=== PATIENT | female | born 1950 | race Hispanic/Latino ===

== ENCOUNTER → 2018-02-11 | Outpatient (CLI) | payer MEDICARE | END | disposition home or self-care (01) | LOC: RAH 10:32 | PROVIDERS: ATTEND Family Medicine | DX: Z12.31 Encounter for screening mammogram for malignant neoplasm of breast (principal); I10 Essential (primary) hypertension; E03.9 Hypothyroidism, unspecified | CPT/HCPCS: 77067 ==

== ENCOUNTER → 2018-07-15 | Outpatient (CLI) | payer MEDICARE ==
[~2018-07-15] MED LIST: ALEN70TA10 PO; AMLO10TA7 PO; IOHEXOL-350 75 ML VIAL IV ONE; LEVO50 PO; LEVO500T2 PO; LOSA25TA41 PO; METO-409 PO; METR500T PO
== END | disposition home or self-care (01) ==
LOC: DAH 08:18
PROVIDERS: ATTEND Internal Medicine
DX: K57.32 Diverticulitis of large intestine without perforation or abscess without bleeding (principal); E27.9 Disorder of adrenal gland, unspecified; N32.89 Other specified disorders of bladder; M85.88 Other specified disorders of bone density and structure, other site; M47.815 Spondylosis without myelopathy or radiculopathy, thoracolumbar region
CPT/HCPCS: 74178; Q9967

== ENCOUNTER → 2018-08-20 | Outpatient (CLI) | payer MEDICARE ==
[~2018-08-20] MED LIST changes: -IOHEXOL-350 75 ML VIAL IV ONE
== END | disposition home or self-care (01) ==
LOC: RAH 12:48
PROVIDERS: ATTEND Family Medicine
DX: E04.2 Nontoxic multinodular goiter (principal); E03.9 Hypothyroidism, unspecified
CPT/HCPCS: 76536

== ENCOUNTER → 2019-03-04 | Outpatient (CLI) | payer MEDICARE | END | disposition home or self-care (01) | LOC: RAH 11:11 | PROVIDERS: ATTEND Family Medicine | DX: E04.2 Nontoxic multinodular goiter (principal) | CPT/HCPCS: 76536 ==

== ENCOUNTER → 2020-03-17 | Outpatient (CLI) | payer MEDICARE ==
[~2020-03-17] MED LIST changes: -ALEN70TA10 PO; +ALEN70TA69 PO; +AMLO-258 PO; -AMLO10TA7 PO
== END | disposition home or self-care (01) ==
LOC: RAH 10:43
PROVIDERS: ATTEND Family Medicine
DX: E04.2 Nontoxic multinodular goiter (principal)
CPT/HCPCS: 76536

== ENCOUNTER 2021-11-26 12:07 | Emergency (ER) | payer MEDICARE ==
[~2021-11-26] VITALS: Ht 154.9 cm; Wt 73.9 kg
[~2021-11-26 12:07] MED LIST changes: -ALEN70TA69 PO; +ALEN70TA80 PO
[2021-11-26 12:14] VITALS: BP 132/57
[2021-11-26] MEDS ORDERED: DICL20GE TP (15:39)
[2021-11-26] MEDS ORDERED: TRAM50TA2 PO (15:39)
[2021-11-26] MEDS ORDERED: KETOROLAC 30MG VIAL (30MG/ML) IM ONE (16:00)
== END 2021-11-26 16:19 | disposition home or self-care (01) ==
LOC: EDH 12:07
DX: R07.89 Other chest pain (principal); I10 Essential (primary) hypertension; Z79.899 Other long term (current) drug therapy
CPT/HCPCS: 71101; 93005; J1885

== ENCOUNTER 2022-09-08 20:14 | Observation (INO) | payer MEDICARE ==
[~2022-09-08] VITALS: Ht 154.9 cm; Wt 74.4 kg
[~2022-09-08 20:14] MED LIST changes: +DICL20GE TP; +TRAM50TA2 PO
[2022-09-08 20:33] LABS: APPEARANCE,URINE CLOUDY (CLEAR); BILIRUBIN,URINE NEGATIVE (NEGATIVE); COLOR,URINE YELLOW (YELLOW); GLUCOSE, URINE (UA) NEGATIVE (NEGATIVE); KETONES,URINE NEGATIVE (NEGATIVE); LEUKOCYTE ESTERASE ,URINE 500 Leu/uL (NEGATIVE); NITRATE,URINE NEGATIVE (NEGATIVE); OCCULT BLOOD,URINE NEGATIVE (NEGATIVE); PH,URINE 5.5 (5.0-8.0); PROTEIN,URINE 20 mg/dL (NEGATIVE)
[2022-09-08 20:38] LABS: BACTERIA,URINE FEW /HPF (None Seen); MUCUS,URINE RARE LPF (None Seen); SQUAMOUS EPITHELIAL CELL,UR RARE /HPF (0-2); WBC,URINE 51-100 /HPF (0-1); YEAST,URINE BUDDING RARE /HPF (None Seen)
[2022-09-08] MEDS ORDERED: DOXYCYCLINE HYCLATE 100 MG TABLET PO ONE ×2 (20:38→20:57)
[2022-09-08] MEDS ORDERED: HYDROCODONE/ACETAMINOPHEN 5/325 MG TAB ONE (20:39)
[2022-09-08] MEDS ORDERED: HYDROCODONE/ACETAMINOPHEN 10/325 MG TAB ONE (20:57)
[2022-09-08] MEDS ORDERED: CEFTRIAXONE 1G VIAL IVP ONE (21:00)
[2022-09-08 21:18] LABS: BASOPHILS % (AUTO) 0.3 % (0.0-5.0); EOSINOPHILS % (AUTO) 0.3 % (0.0-8.0); HEMATOCRIT 34.5 % (36-48); MEAN CORPUSCULAR HEMOGLOBIN 27.3 pg (27.0-33.0); MEAN CORPUSCULAR HGB CONC 32.2 g/dL (32.0-36.0); MONOCYTES % (AUTO) 6.1 % (3.0-13.0); NEUTROPHILS % (AUTO) 91.7 % (40.0-77.0); PLATELET COUNT (AUTO) 429 K/uL (130-400); RED BLOOD CELL COUNT(AUTO) 4.06 MIL/uL (4.00-5.50); RED CELL DISTRIBUTION WIDTH 13.4 % (11.0-15.5); WHITE BLOOD COUNT (AUTO) 22.6 K/uL (4.8-10.8)
[2022-09-08 21:34] LABS: CREATININE 0.9 mg/dL (0.5-1.5); POTASSIUM 3.9 mmol/L (3.5-5.1)
[2022-09-08 21:38] LABS: TOTAL PROTEIN, SERUM 6.7 g/dL (6.0-8.3)
[2022-09-09] VITALS (15 sets, daily range): BP systolic 119–142; BP diastolic 28–85
[2022-09-09] MEDS ORDERED: ONDANSETRON 4MG INJ IVP PRN (01:30)
[2022-09-09] MEDS ORDERED: MAGNESIUM 2GM PREMIX 50ML 50 ML IV PRN (01:30)
[2022-09-09] MEDS ORDERED: GLUCAGON 1MG KIT 1 MG ML IM PRN (01:30)
[2022-09-09] MEDS ORDERED: HYDRALAZINE 20MG/ML VIAL IV PRN (01:30)
[2022-09-09] MEDS ORDERED: 0.9%NACL 50ML IV SCH (01:30)
[2022-09-09] MEDS ORDERED: LACTULOSE 20 GM/30 ML UDCUP PO PRN (01:30)
[2022-09-09] MEDS ORDERED: DEXTROSE 50%-WATER 50 ML DISP.SYRIN IV PRN (01:30)
[2022-09-09] MEDS ORDERED: LIDOCAINE HCL-MPF 1% 2ML VIAL IV PRN (01:30)
[2022-09-09] MEDS ORDERED: ZOSYN 3.375GM +NS 50ML IVPB SCH (01:30)
[2022-09-09] MEDS ORDERED: IPRATROPIUM 0.5 MG/2.5 ML INH IH PRN (01:30)
[2022-09-09] MEDS ORDERED: POTASSIUM CHLORIDE 10MEQ/100ML 100 ML IV PRN (01:30)
[2022-09-09] MEDS ORDERED: ALBUTEROL 0.083% 2.5 MG/3 ML INH IH PRN (01:30)
[2022-09-09] MEDS ORDERED: CLONIDINE HCL 0.1 MG TABLET PO PRN (01:30)
[2022-09-09] MEDS ORDERED: MEROPENEM 1 GM VIAL IVP SCH (02:00)
[2022-09-09 05:54] LABS: BASOPHILS % (AUTO) 0.5 % (0.0-5.0); EOSINOPHILS % (AUTO) 0.5 % (0.0-8.0); HEMATOCRIT 36.5 % (36-48); LYMPHOCYTES % (AUTO) 5.2 % (21.0-51.0); MEAN CORPUSCULAR HEMOGLOBIN 27.5 pg (27.0-33.0); MEAN CORPUSCULAR HGB CONC 32.1 g/dL (32.0-36.0); MEAN CORPUSCULAR VOLUME 85.9 fL (79-99); MONOCYTES % (AUTO) 6.1 % (3.0-13.0); NEUTROPHILS % (AUTO) 87.1 % (40.0-77.0); PLATELET COUNT (AUTO) 422 K/uL (130-400); RED BLOOD CELL COUNT(AUTO) 4.25 MIL/uL (4.00-5.50); RED CELL DISTRIBUTION WIDTH 13.5 % (11.0-15.5); WHITE BLOOD COUNT (AUTO) 11.6 K/uL (4.8-10.8)
[2022-09-09 05:59] LABS: HEMOGLOBIN A1C 6.7 % (4.0-6.0)
[2022-09-09] MEDS: INSULIN HUMULIN R 100 UNIT/ML 3ML SQ SCH ×3 (06:00→17:32)
[2022-09-09 06:03] LABS: INR 0.96 (0.85-1.15); PROTHROMBIN TIME 10.5 SEC (9.6-11.6)
[2022-09-09 06:04] LABS: PARTIAL THROMBOPLASTIN TIME 21.4 SEC (26.3-35.5)
[2022-09-09 06:22] LABS: CREATININE 0.8 mg/dL (0.5-1.5); MAGNESIUM 2.1 mg/dL (1.80-2.40); PHOSPHORUS 2.8 mg/dL (2.5-4.9); POTASSIUM 3.8 mmol/L (3.5-5.1); THYROID STIMULATING HORMONE 2.18 uIU/mL (0.36-3.74)
[2022-09-09] MEDS: FAMOTIDINE 20MG TAB PO SCH ×2 (09:11→21:35)
[2022-09-09] MEDS: DOCUSATE SODIUM 100 MG CAP PO SCH ×2 (09:11→21:35)
[2022-09-09] MEDS: CEFAZOLIN SODIUM 2 GM VIAL IVP SCH ×2 (10:11→16:51)
[2022-09-09] MEDS: ACETAMINOPHEN 325 MG TAB PO PRN (12:11)
[2022-09-09] MEDS: HYDROCODONE/ACETAMINOPHEN 5/325 MG TAB PO PRN (16:52)
[2022-09-09] MEDS ORDERED: HYDROCODONE/ACETAMINOPHEN 5/325 MG TAB PO PRN (17:00)
[2022-09-10] VITALS (27 sets, daily range): BP systolic 103–135; BP diastolic 40–81
[2022-09-10] MEDS: CEFAZOLIN SODIUM 2 GM VIAL IVP SCH ×2 (01:09→08:12)
[2022-09-10 04:01] LABS: BASOPHILS % (AUTO) 0.7 % (0.0-5.0); EOSINOPHILS % (AUTO) 3.7 % (0.0-8.0); LYMPHOCYTES % (AUTO) 13.6 % (21.0-51.0); MEAN CORPUSCULAR HEMOGLOBIN 27.2 pg (27.0-33.0); MEAN CORPUSCULAR HGB CONC 31.4 g/dL (32.0-36.0); MEAN CORPUSCULAR VOLUME 86.9 fL (79-99); MONOCYTES % (AUTO) 13.6 % (3.0-13.0); NEUTROPHILS % (AUTO) 67.9 % (40.0-77.0); PLATELET COUNT (AUTO) 441 K/uL (130-400); RED BLOOD CELL COUNT(AUTO) 4.26 MIL/uL (4.00-5.50); RED CELL DISTRIBUTION WIDTH 13.5 % (11.0-15.5); WHITE BLOOD COUNT (AUTO) 9.2 K/uL (4.8-10.8)
[2022-09-10 04:09] LABS: CREATININE 0.7 mg/dL (0.5-1.5); MAGNESIUM 2.1 mg/dL (1.80-2.40); PHOSPHORUS 3.2 mg/dL (2.5-4.9); POTASSIUM 3.5 mmol/L (3.5-5.1)
[2022-09-10] MEDS: INSULIN HUMULIN R 100 UNIT/ML 3ML SQ SCH ×4 (06:00→11:47)
[2022-09-10] MEDS ORDERED: LEVOTHYROXINE 50 MCG TABLET PO SCH (06:30)
[2022-09-10] MEDS: DOCUSATE SODIUM 100 MG CAP PO SCH (08:02)
[2022-09-10] MEDS: HYDROCODONE/ACETAMINOPHEN 5/325 MG TAB PO PRN (08:03)
[2022-09-10] MEDS: FAMOTIDINE 20MG TAB PO SCH (08:04)
[2022-09-10] MEDS ORDERED: NON-FORMULARY MEDICATION 1 EACH (Metoprolol Succinate 100 MG) PO SCH (09:00)
[2022-09-10] MEDS ORDERED: METOPROLOL SUCCINATE 50 MG TAB.SR.24H PO SCH (09:00)
[2022-09-10] MEDS ORDERED: NON-FORMULARY MEDICATION 1 EACH (Amlodipine Besylate 10 MG) PO SCH (09:00)
[2022-09-10] MEDS ORDERED: LOSARTAN 25 MG TABLET PO SCH ×2 (09:00→12:00)
[2022-09-10] MEDS ORDERED: AMLODIPINE 5 MG TAB PO SCH ×2 (09:00→21:00)
[2022-09-10] MEDS: ACETAMINOPHEN 325 MG TAB PO PRN (16:01)
== END 2022-09-10 16:45 | disposition home or self-care (01) ==
LOC: EDH 20:14 → EDHIP 09-09 01:14 → INTOOBSV 09-09 01:14 → 2CH 09-09 12:00
PROVIDERS: ADMIT Internal Medicine; ATTEND Internal Medicine
DX: A41.9 Sepsis, unspecified organism (principal); Z20.822 Contact with and (suspected) exposure to COVID-19; N30.00 Acute cystitis without hematuria; S00.531A Contusion of lip, initial encounter; S20.211A Contusion of right front wall of thorax, initial encounter; S70.01XA Contusion of right hip, initial encounter; I10 Essential (primary) hypertension; E03.9 Hypothyroidism, unspecified; M81.0 Age-related osteoporosis without current pathological fracture; W01.10XA Fall on same level from slipping, tripping and stumbling with subsequent striking against unspecified object, initial encounter; Y93.89 Activity, other specified; Y92.89 Other specified places as the place of occurrence of the external cause; F41.9 Anxiety disorder, unspecified
CPT/HCPCS: 83735 ×3; 80053; 85025 ×3; 87040 ×2; 87088; 87804 ×2; 83605 ×2; 81001; 36415 ×3; 87635; 71045; 73502; 70450 ×3; 97039 ×3; 96374; 96376 ×2; 96375; 99285; 83036; 84443; 84100 ×2; 80048 ×2; 85610; 85730; 86850; 86900; 86901; 82948 ×7; 97161; 94664; 84145; 97116; C9803; J0696; G0378 ×39; J2185; J0690 ×4; J1815

== ENCOUNTER → 2023-05-19 | Outpatient (CLI) | payer MEDICARE ==
[~2023-05-19] MED LIST changes: -ALEN70TA80 PO; -DICL20GE TP; -LEVO500T2 PO; -METR500T PO; +ONDA-104 PO; +PHEN-948 PO; -TRAM50TA2 PO
[2023-05-19 12:17] LABS: BASOPHILS # (AUTO) 0.08 K/uL (0.00-0.20); BASOPHILS % (AUTO) 0.6 % (0.0-5.0); EOSINOPHILS # (AUTO) 0.15 K/uL (0.00-0.70); EOSINOPHILS % (AUTO) 1.1 % (0.0-8.0); HEMATOCRIT 42.3 % (36-48); IMMATURE GRANULOCYTE ABSOLUTE 0.05 K/uL (0-1); LYMPHOCYTES # (AUTO) 1.2 K/uL (1.0-4.8); LYMPHOCYTES % (AUTO) 8.9 % (21.0-51.0); MEAN CORPUSCULAR HGB CONC 31.4 g/dL (32.0-36.0); MEAN CORPUSCULAR VOLUME 92.4 fL (79-99); MONOCYTES # (AUTO) 1.1 K/uL (0.1-1.0); MONOCYTES % (AUTO) 7.9 % (3.0-13.0); NEUTROPHILS # (AUTO) 11.2 K/uL (1.8-7.7); NEUTROPHILS % (AUTO) 81.1 % (40.0-77.0); PLATELET COUNT (AUTO) 413 K/uL (130-400); RED BLOOD CELL COUNT(AUTO) 4.58 MIL/uL (4.00-5.50); RED CELL DISTRIBUTION WIDTH 13.6 % (11.0-15.5); WHITE BLOOD COUNT (AUTO) 13.7 K/uL (4.8-10.8)
[2023-05-19 12:28] LABS: ALBUMIN 3.7 g/dL (3.5-5.0); BILIRUBIN,TOTAL 0.3 mg/dL (0.2-1.0); CREATININE 0.7 mg/dL (0.5-1.5); POTASSIUM 4.1 mmol/L (3.5-5.1); TOTAL PROTEIN, SERUM 8.3 g/dL (6.0-8.3)
[2023-05-19 12:40] LABS: INR < 0.93 (0.85-1.15); PROTHROMBIN TIME 10.3 SEC (9.6-11.6)
[2023-05-19 12:42] LABS: PARTIAL THROMBOPLASTIN TIME 20.8 SEC (26.3-35.5)
== END | disposition home or self-care (01) ==
LOC: LAB 11:14
PROVIDERS: ATTEND Surgery
DX: Z93.3 Colostomy status (principal); Z79.899 Other long term (current) drug therapy; Z79.01 Long term (current) use of anticoagulants
CPT/HCPCS: 36415; 80053; 85025; 85610; 85730

== ENCOUNTER 2023-05-21 08:37 | Day surgery (SDC) | payer MEDICARE ==
[~2023-05-21] VITALS: Ht 157.5 cm; Wt 62.4 kg
[2023-05-21] VITALS (11 sets, daily range): BP systolic 100–114; BP diastolic 45–54; PULSE 60–77; RESP 10–18
[~2023-05-21 08:37] MED LIST changes: -ONDA-104 PO; -PHEN-948 PO
[2023-05-21] MEDS ORDERED: 0.9%NACL 1000ML 1,000 ML IV ONE (09:01)
[2023-05-21] MEDS ORDERED: LIDOCAINE PF 100MG/5ML (2%) SYRINGE 5ML ONE (11:15)
[2023-05-21] MEDS ORDERED: PROPOFOL 10 MG/ML 20ML VIAL IV ONE (11:15)
== END 2023-05-21 12:55 | disposition home or self-care (01) ==
LOC: DAH 08:37 → ENDO 08:37
PROVIDERS: ATTEND Surgery
DX: K57.21 Diverticulitis of large intestine with perforation and abscess with bleeding (principal); K62.89 Other specified diseases of anus and rectum; I10 Essential (primary) hypertension; Z79.899 Other long term (current) drug therapy; M81.0 Age-related osteoporosis without current pathological fracture; M19.90 Unspecified osteoarthritis, unspecified site; Z79.01 Long term (current) use of anticoagulants; Z98.890 Other specified postprocedural states; Z90.49 Acquired absence of other specified parts of digestive tract; Z86.010 Personal history of colon polyps; Z93.3 Colostomy status
CPT/HCPCS: 45335; 45331; J7030 ×2; J2001; J2704; A4620; A4215 ×2; A4223; A7002; A4222; A4221; A4663; A4216; A4606; J3490

== ENCOUNTER → 2023-09-18 | Outpatient (CLI) | payer MEDICARE ==
[~2023-09-18] MED LIST changes: +ALEN70TA80 PO; +CHOL100046 PO
== END | disposition home or self-care (01) ==
LOC: RAH 09:13
PROVIDERS: ATTEND Family Medicine
DX: Z12.31 Encounter for screening mammogram for malignant neoplasm of breast (principal)
CPT/HCPCS: 77067

== ENCOUNTER 2023-10-10 11:00 | Inpatient (IN) | payer MEDICARE ==
[~2023-10-10] VITALS: Ht 157.5 cm; Wt 68.1 kg
[2023-10-10 10:31] LABS: BASOPHILS # (AUTO) 0.11 K/uL (0.00-0.20); BASOPHILS % (AUTO) 1.1 % (0.0-5.0); EOSINOPHILS # (AUTO) 0.51 K/uL (0.00-0.70); EOSINOPHILS % (AUTO) 5.2 % (0.0-8.0); HEMATOCRIT 42.4 % (36-48); IMMATURE GRANULOCYTE ABSOLUTE 0.03 K/uL (0-1); LYMPHOCYTES # (AUTO) 1.3 K/uL (1.0-4.8); LYMPHOCYTES % (AUTO) 12.6 % (21.0-51.0); MEAN CORPUSCULAR HEMOGLOBIN 26.2 pg (27.0-33.0); MEAN CORPUSCULAR HGB CONC 30.7 g/dL (32.0-36.0); MEAN CORPUSCULAR VOLUME 85.5 fL (79-99); MONOCYTES # (AUTO) 0.9 K/uL (0.1-1.0); MONOCYTES % (AUTO) 8.6 % (3.0-13.0); NEUTROPHILS # (AUTO) 7.1 K/uL (1.8-7.7); NEUTROPHILS % (AUTO) 72.2 % (40.0-77.0); PLATELET COUNT (AUTO) 463 K/uL (130-400); RED BLOOD CELL COUNT(AUTO) 4.96 MIL/uL (4.00-5.50); RED CELL DISTRIBUTION WIDTH 14.5 % (11.0-15.5); WHITE BLOOD COUNT (AUTO) 9.9 K/uL (4.8-10.8)
[2023-10-10 10:44] LABS: INR <= 0.93 (0.85-1.15); PROTHROMBIN TIME 10.4 SEC (9.6-11.6)
[2023-10-10 10:45] LABS: PARTIAL THROMBOPLASTIN TIME 25.6 SEC (26.3-35.5)
[2023-10-10 10:55] LABS: ALBUMIN 3.6 g/dL (3.5-5.0); BILIRUBIN,TOTAL 0.3 mg/dL (0.2-1.0); CREATININE 0.7 mg/dL (0.5-1.0); POTASSIUM 4.2 mmol/L (3.5-5.1); TOTAL PROTEIN, SERUM 7.8 g/dL (6.0-8.3)
[2023-10-10 11:02] VITALS: BP 129/58; PULSE 81; RESP 18
[2023-10-10] MEDS ORDERED: CELE200 PO (11:13)
[2023-10-10] MEDS ORDERED: calcium PO (11:13)
[2023-10-10] MEDS ORDERED: mvi PO (11:13)
[2023-10-15] VITALS (27 sets, daily range): BP systolic 90–129; BP diastolic 44–83; PULSE 8–95; RESP 12–20; O2SAT 99
[2023-10-15] MEDS: INDOCYANINE GREEN 25 MG VIAL IJ ONE (06:54)
[2023-10-15] MEDS: FAMOTIDINE 20MG VIAL IV ONE (07:02)
[2023-10-15] MEDS: ACETAMINOPHEN 1,000 MG/100 ML VIAL IV ONE (07:02)
[2023-10-15] MEDS ORDERED: KETAMINE 50MG/ML SYRINGE 50 MG/ML DISP.SYRIN ONE (07:04)
[2023-10-15] MEDS: LACTATED RINGERS 1000ML 1,000 ML IV ONE (07:11)
[2023-10-15] MEDS: SCOPOLAMINE HYDROBROMIDE 1 EACH ADH..PATCH TD ONE (07:11)
[2023-10-15] MEDS ORDERED: LIDOCAINE PF 100MG/5ML (2%) SYRINGE 5ML ONE (07:13)
[2023-10-15] MEDS ORDERED: FENTANYL CITRATE PF 50 MCG/1 ML 2ML VIAL ONE (07:13)
[2023-10-15] MEDS ORDERED: PROPOFOL 10 MG/ML 20ML VIAL IV ONE (07:13)
[2023-10-15] MEDS ORDERED: ROCURONIUM BROMIDE 10MG/1ML 5ML VL ONE ×2 (07:13→10:19)
[2023-10-15] MEDS ORDERED: DEXAMETHASONE SOD PHOSPHATE 10MG/ML 1ML VIAL ONE (08:24)
[2023-10-15] MEDS ORDERED: ONDANSETRON 4MG INJ ONE (08:24)
[2023-10-15] MEDS: INVANZ 1GM+NS 50ML IVPB 50 ML IV ONE (08:55)
[2023-10-15] MEDS: BUPIVACAINE/PF 0.5% 30ML VIAL ONE (09:13)
[2023-10-15] MEDS: LIDOCAINE 1%-EPI 1:100,000 20 ML VIAL ONE (09:13)
[2023-10-15] MEDS ORDERED: GLYCOPYRROLATE 0.2 MG/ML 5 ML VIAL ONE (11:46)
[2023-10-15] MEDS ORDERED: NEOSTIGMINE METHYLSULFATE 1MG/ML IV ONE (11:46)
[2023-10-15] MEDS: MORPHINE 4 MG SYG IV PRN (13:37)
[2023-10-15] MEDS ORDERED: HYDRALAZINE 20MG/ML VIAL IV PRN (18:00)
[2023-10-15] MEDS: D5W-1/2 NS/20MEQ KCL 1,000 ML IV SCH (18:35)
[2023-10-15] MEDS: LOSARTAN 25 MG TABLET PO SCH (20:43)
[2023-10-15] MEDS ORDERED: AMLODIPINE 5 MG TAB PO SCH (21:00)
[2023-10-15] MEDS: ONDANSETRON 4MG INJ IVP PRN (21:13)
[2023-10-15] MEDS: FAMOTIDINE 20MG VIAL IV SCH (21:14)
[2023-10-15] MEDS: ACETAMINOPHEN 325 MG TAB PO PRN (21:52)
[2023-10-16] VITALS (8 sets, daily range): BP systolic 102–131; BP diastolic 53–70; PULSE 72–84; RESP 17–18; O2SAT 93
[2023-10-16 04:03] LABS: CREATININE 0.7 mg/dL (0.5-1.0); POTASSIUM 3.9 mmol/L (3.5-5.1)
[2023-10-16 04:05] LABS: BASOPHILS # (AUTO) 0.04 K/uL (0.00-0.20); BASOPHILS % (AUTO) 0.2 % (0.0-5.0); HEMATOCRIT 36.9 % (36-48); IMMATURE GRANULOCYTE ABSOLUTE 0.11 K/uL (0-1); LYMPHOCYTES % (AUTO) 4.8 % (21.0-51.0); MEAN CORPUSCULAR HEMOGLOBIN 25.9 pg (27.0-33.0); MEAN CORPUSCULAR HGB CONC 32.2 g/dL (32.0-36.0); MEAN CORPUSCULAR VOLUME 80.2 fL (79-99); MONOCYTES # (AUTO) 1.2 K/uL (0.1-1.0); MONOCYTES % (AUTO) 5.8 % (3.0-13.0); NEUTROPHILS # (AUTO) 18.8 K/uL (1.8-7.7); NEUTROPHILS % (AUTO) 88.7 % (40.0-77.0); PLATELET COUNT (AUTO) 486 K/uL (130-400); RED CELL DISTRIBUTION WIDTH 14.4 % (11.0-15.5); WHITE BLOOD COUNT (AUTO) 21.1 K/uL (4.8-10.8)
[2023-10-16 04:06] LABS: HEMOGLOBIN A1C 6.8 % (4.0-6.0)
[2023-10-16 04:31] LABS: WBC MORPHOLOGY CONSISTENT W/DIFF
[2023-10-16] MEDS: LEVOTHYROXINE 50 MCG TABLET PO SCH (06:04)
[2023-10-16] MEDS: METOPROLOL SUCCINATE 50 MG TAB.SR.24H PO SCH (10:37)
[2023-10-16] MEDS: HYDROCODONE/ACETAMINOPHEN 5/325 MG TAB PO PRN (10:38)
[2023-10-16] MEDS: DIPHENOXYLATE HCL/ATROPINE 2.5/0.025 MG TAB PO SCH (10:38)
[2023-10-16] MEDS: ENOXAPARIN SODIUM 40 MG/0.4 ML SYRINGE SQ SCH (10:39)
[2023-10-16 11:19] LABS: APPEARANCE,URINE CLEAR (CLEAR); BILIRUBIN,URINE NEGATIVE (NEGATIVE); COLOR,URINE COLORLESS (YELLOW); GLUCOSE, URINE (UA) NEGATIVE (NEGATIVE); KETONES,URINE NEGATIVE (NEGATIVE); LEUKOCYTE ESTERASE ,URINE 250 Leu/uL (NEGATIVE); NITRATE,URINE NEGATIVE (NEGATIVE); OCCULT BLOOD,URINE NEGATIVE (NEGATIVE); PH,URINE 6.5 (5.0-8.0); PROTEIN,URINE NEGATIVE (NEGATIVE); UROBILINOGEN,URINE 0.2 mg/dL (0.2-1.0)
[2023-10-16 11:20] LABS: ADD UA MICROSCOPIC YES
[2023-10-16] MEDS: CEFTRIAXONE 2GM VIAL IVPB SCH (16:05)
[2023-10-17 04:21] VITALS: BP 106/42; PULSE 76; RESP 18
[2023-10-17 05:24] LABS: BASOPHILS # (AUTO) 0.07 K/uL (0.00-0.20); BASOPHILS % (AUTO) 0.5 % (0.0-5.0); EOSINOPHILS # (AUTO) 0.26 K/uL (0.00-0.70); EOSINOPHILS % (AUTO) 1.8 % (0.0-8.0); HEMATOCRIT 34.4 % (36-48); IMMATURE GRANULOCYTE ABSOLUTE 0.08 K/uL (0-1); LYMPHOCYTES # (AUTO) 1.3 K/uL (1.0-4.8); LYMPHOCYTES % (AUTO) 8.8 % (21.0-51.0); MEAN CORPUSCULAR HEMOGLOBIN 25.7 pg (27.0-33.0); MEAN CORPUSCULAR HGB CONC 31.7 g/dL (32.0-36.0); MEAN CORPUSCULAR VOLUME 81.1 fL (79-99); MONOCYTES # (AUTO) 1.8 K/uL (0.1-1.0); MONOCYTES % (AUTO) 12.3 % (3.0-13.0); NEUTROPHILS # (AUTO) 11.3 K/uL (1.8-7.7); NEUTROPHILS % (AUTO) 76.1 % (40.0-77.0); PLATELET COUNT (AUTO) 430 K/uL (130-400); RED BLOOD CELL COUNT(AUTO) 4.24 MIL/uL (4.00-5.50); RED CELL DISTRIBUTION WIDTH 14.7 % (11.0-15.5); WHITE BLOOD COUNT (AUTO) 14.8 K/uL (4.8-10.8)
[2023-10-17 05:37] LABS: ALBUMIN 2.8 g/dL (3.5-5.0); BILIRUBIN,TOTAL 0.3 mg/dL (0.2-1.0); CREATININE 0.7 mg/dL (0.5-1.0); MAGNESIUM 1.9 mg/dL (1.80-2.40); POTASSIUM 4.2 mmol/L (3.5-5.1); TOTAL PROTEIN, SERUM 6.6 g/dL (6.0-8.3)
[2023-10-17 08:00] VITALS: BP 107/66; PULSE 72; RESP 17; O2SAT 94
[2023-10-17 12:01] VITALS: BP 111/59; PULSE 69; RESP 17
== END 2023-10-17 13:05 | disposition home or self-care (01) | DRG 336 ==
LOC: DAHIP 10-15 05:58 → 4AH 10-15 13:35
PROVIDERS: ADMIT Surgery; ATTEND Surgery
PROC: 0DNE4ZZ Release Large Intestine, Percutaneous Endoscopic Approach (ICD-10-PCS; principal; 2023-10-15 07:30)
PROC: 8E0W4CZ Robotic Assisted Procedure of Trunk Region, Percutaneous Endoscopic Approach (ICD-10-PCS; 2023-10-15 07:30)
PROC: 0DBW4ZX Excision of Peritoneum, Percutaneous Endoscopic Approach, Diagnostic (ICD-10-PCS; 2023-10-15 07:30)
DX: K57.32 Diverticulitis of large intestine without perforation or abscess without bleeding (principal); N39.0 Urinary tract infection, site not specified; N82.3 Fistula of vagina to large intestine; R19.03 Right lower quadrant abdominal swelling, mass and lump; N73.6 Female pelvic peritoneal adhesions (postinfective); E03.9 Hypothyroidism, unspecified; E78.5 Hyperlipidemia, unspecified; I10 Essential (primary) hypertension; M81.0 Age-related osteoporosis without current pathological fracture; Z93.2 Ileostomy status
CPT/HCPCS: 36415; 80048; 80053; 81001; 82948; 83036; 83735; 85025; 85610; 85730; 86850; 86900; 86901; 87088; 88305; 88331; 93005; A4344; G0378; J0696; J1100; J1335; J1650; J2001; J2270; J2405; J2704; J2710; J3010; J3480; J3490; J7030; J7120; A4215; A4221; A4222; A4223; A4600; A4649; A4663; A4930; A6260; C1769; G0168; J0665

== ENCOUNTER → 2024-05-10 | Outpatient (CLI) | payer MEDICARE ==
[~2024-05-10] MED LIST changes: +CELE200 PO; +calcium PO; +mvi PO
--- NOTE | 2024-05-10 10:07 | HMCIMG ---
COLON-GASTROGRAFIN REASON: ENTEROSTOMY COMPLICATION, UNSPECIFIED COMPARISON: None TECHNIQUE: Water-soluble enema procedure was performed with fluoroscopic guidance, fluoroscopy time 0.7 minutes. Multiple spot views were obtained as well as overhead images. 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 Bowel gas pattern is otherwise unremarkable. Ostomy is noted in the left lower quadrant There is prompt passage of contrast to throughout the colon. There is reflux into a normal-appearing terminal ileum, this extends to the ostomy site. There is no evidence of mass. Descending colon caliber is small consistent with disuse, terminal ileum also appears small consistent with disuse. There is no evidence of leak or obstruction. IMPRESSION: 1. Normal unprepped water soluble enema, easy filling from rectum to cecum with reflux into the terminal ileum and the ileal ostomy bag.
== END | disposition home or self-care (01) ==
LOC: RAH 08:15
PROVIDERS: ATTEND Surgery
DX: K94.10 Enterostomy complication, unspecified (principal)
CPT/HCPCS: 74270; Q9958

== ENCOUNTER 2024-06-08 17:23 | Emergency (ER) | payer MEDICARE ==
[~2024-06-08] VITALS: Ht 154.9 cm; Wt 69.4 kg
[~2024-06-08 17:23] MED LIST changes: +BUSP10TA3 PO; +DIPH1TAB PO; +MULT-1250 PO; -mvi PO
--- NOTE | 2024-06-08 17:56 | EKG ---
[facility] Test Date: 2024-06-08 Test Time: 17:49:46 Pat Name: ISAURO UP Department: ED Room: Gender: F Ship Keeper: [id number] : 1950 Requested By: JULISA LEE Order Number: [id number] Reading MD: Delores Greenfield Measurements Intervals [place] Rate: 75 P: 49 WI: 144 QRS: 36 QRSD: 99 T: 57 QT: 390 QTc: 435 Interpretive Statements Sinus rhythm Compared to ECG 05/17/2024 11:15:52 No significant changes Electronically Signed On 06-09-2024 08:08:52 YOUTH OFFICER by Delores Greenfield Please click the below link to view image of tracing.
[2024-06-08 18:04] LABS: BASOPHILS # (AUTO) 0.07 K/uL (0.00-0.20); BASOPHILS % (AUTO) 0.7 % (0.0-5.0); EOSINOPHILS % (AUTO) 2.9 % (0.0-8.0); HEMATOCRIT 35.2 % (36-48); IMMATURE GRANULOCYTE ABSOLUTE 0.04 K/uL (0-1); LYMPHOCYTES # (AUTO) 1.3 K/uL (1.0-4.8); LYMPHOCYTES % (AUTO) 12.7 % (21.0-51.0); MEAN CORPUSCULAR HEMOGLOBIN 25.6 pg (27.0-33.0); MEAN CORPUSCULAR HGB CONC 31.8 g/dL (32.0-36.0); MEAN CORPUSCULAR VOLUME 80.4 fL (79-99); MONOCYTES # (AUTO) 0.9 K/uL (0.1-1.0); MONOCYTES % (AUTO) 8.1 % (3.0-13.0); NEUTROPHILS # (AUTO) 7.9 K/uL (1.8-7.7); NEUTROPHILS % (AUTO) 75.2 % (40.0-77.0); PLATELET COUNT (AUTO) 469 K/uL (130-400); RED BLOOD CELL COUNT(AUTO) 4.38 MIL/uL (4.00-5.50); RED CELL DISTRIBUTION WIDTH 13.8 % (11.0-15.5); WHITE BLOOD COUNT (AUTO) 10.5 K/uL (4.8-10.8)
[2024-06-08 18:05] LABS: APPEARANCE,URINE CLEAR (CLEAR); BILIRUBIN,URINE NEGATIVE (NEGATIVE); COLOR,URINE LIGHT-YELLOW (YELLOW); GLUCOSE, URINE (UA) NEGATIVE (NEGATIVE); KETONES,URINE NEGATIVE (NEGATIVE); LEUKOCYTE ESTERASE ,URINE NEGATIVE Leu/uL (NEGATIVE); NITRATE,URINE NEGATIVE (NEGATIVE); OCCULT BLOOD,URINE NEGATIVE (NEGATIVE); PH,URINE 6.5 (5.0-8.0); PROTEIN,URINE NEGATIVE (NEGATIVE); UROBILINOGEN,URINE 0.2 mg/dL (0.2-1.0)
[2024-06-08 18:07] LABS: ADD UA MICROSCOPIC NO
--- NOTE | 2024-06-08 18:14 | ERN ---
ED Note History of Present Illness Stated Complaint: BACK PAIN Chief Complaint: Back Pain or Injury Time Seen by MD: 17:35 Time Seen by Midlevel: 17:35 Dictation: 73-year-old female presents to the emergency department due to reported having bilateral mid back pain that began 3 days ago. She states that she does have some nausea associated with this but no reported episode of vomiting. At this time, she denies having any fever, chills, dysuria, hematuria or abdominal pain with this. Patient states that the pain is more of a soreness/stiffness type of sensation. She states that she was washing some heavy laundry then I before so does not know whether or not this might be related to this. Patient states that the pain worsens with movement such as bending or twisting of the torso. Upon initial evaluation, the patient presents mildly uncomfortable looking. Allergies: Coded Allergies: No Known Allergies (Verified Allergy, Unknown, 06/08/18) Emergency Care PLANNING CONSULTANT: None Home Meds Reported Medications Diphenoxylate HCl/Atropine (Lomotil Tablet) 2.5 Mg-0.025 Mg Tablet, 1 EACH PO TIDMEALS, TAB 05/17/24 Multivit-Min/Iron/FA/Vit K/Lut (Centrum Silver Women Tablet) 8 Mg Iron-400 Mcg- 50 Mcg-300 Mcg Tablet, 1 EACH PO DAILY, TAB 05/17/24 Buspirone HCl (Buspirone HCl) 10 Mg Tablet, 10 MG PO BID, TAB 05/17/24 [calcium] No Conflict Check, 1 TAB PO DAILY 10/10/23 Celecoxib (Celebrex 200Mg Cap) 200 Mg Cap, 200 MG PO AM, CAP 10/10/23 Alendronate Sodium (Alendronate Sodium) 70 Mg Tablet, 70 MG PO QWEEK, TAB 06/27/23 Cholecalciferol (Vitamin D3) (Vitamin D3) 25 Mcg (1000 Unit) Capsule, 25 MCG PO DAILY, CAP 06/27/23 Losartan Potassium (Losartan Potassium) 25 Mg Tablet, 25 MG PO PCLUNCH, TAB 06/09/18 Metoprolol Succinate (Metoprolol Succinate) 100 Mg Tab.er.24h, 100 MG PO DAILY, TAB 06/09/18 Amlodipine Besylate (Amlodipine Besylate) 10 Mg Tablet, 10 MG PO HS, TAB 06/09/18 Levothyroxine Sodium (Levothroid/Synthroid) 50 Mcg Tab, 75 MCG PO ACBKFST, TAB 06/09/18 Past Medical History Past Medical History: Arthritis, Hypertension Surgical History: Other Surgical History Other: COLOSTOMY, COLOSTOMY REVERSAL PSYCH History: no pertinent psych hx Social History: Negative, Lives with family History: Not Applicable RN Note Reviewed/Agreed w/PFSH: Yes Review of System Dictation See HPI. Initial Vital Sign VS Vital Signs Date Time Temp Pulse Resp B/P (MAP) Pulse Ox O2 Delivery O2 Flow Rate FiO2 06/08/24 17:43 98.8 77 20 143/69 99 Room Air 0 Physical Exam Dictation General: awake, alert, NAD Head/Face: Normocephalic, atraumatic Eyes: PERRL, EOMI ENT: Oral mucosa moist Neck: Trachea midline, supple Cardiovascular: RRR, no edema Respiratory: Symmetrical, non-labored Abdomen: Soft, non-tender, non-distended, no guarding. Skin: Warm, dry, good turgor, no rash MS/Extremity: Pulses equal, no cyanosis, neurovascular intact, FROM BACK: Stiffness and tender to the mid back at the paraspinal tenderness area. No step-off deformity. No vertebral tenderness. Neuro: COAx4, GCS 15, steady gait, Psych: Normal behavior, mood, and affect normal Results (Laboratory/Radiology) Laboratory/Radiology Laboratory Tests Test 06/08/24 17:57 06/08/24 17:58 Urine Color LIGHT-YELLOW (YELLOW) Urine Appearance CLEAR (CLEAR) Urine pH 6.5 (5.0-8.0) Urine Specific [place] 1.013 (1.001-1.031) Urine Protein NEGATIVE mg/dL (NEGATIVE) Urine Glucose (UA) NEGATIVE mg/dL (NEGATIVE) Urine Ketones NEGATIVE mg/dL (NEGATIVE) Urine Occult Blood NEGATIVE (NEGATIVE) Urine Nitrate NEGATIVE (NEGATIVE) Urine Bilirubin NEGATIVE mg/dL (NEGATIVE) Urine Urobilinogen 0.2 mg/dL (0.2-1.0) Urine Leukocyte Esterase NEGATIVE Toño/uL White Blood Count 10.5 K/uL (4.8-10.8) Red Blood Count 4.38 MIL/uL (4.00-5.50) Hemoglobin 11.2 g/dL (12.0-16.0) L Hematocrit 35.2 % (36-48) L Mean Corpuscular Volume 80.4 fL (79-99) Mean Corpuscular Hemoglobin 25.6 pg (27.0-33.0) L Mean Corpuscular Hemoglobin Concent 31.8 g/dL (32.0-36.0) L Red Cell Distribution Width 13.8 % (11.0-15.5) Platelet Count 469 K/uL (130-400) H Mean Platelet Volume 8.8 fL (7.5-10.5) Immature Granulocyte % (Auto) 0.4 % (0-1) Neutrophils (%) (Auto) 75.2 % (40.0-77.0) Lymphocytes (%) (Auto) 12.7 % (21.0-51.0) L Monocytes (%) (Auto) 8.1 % (3.0-13.0) Eosinophils (%) (Auto) 2.9 % (0.0-8.0) Basophils (%) (Auto) 0.7 % (0.0-5.0) Neutrophils # (Auto) 7.9 K/uL (1.8-7.7) H Lymphocytes # (Auto) 1.3 K/uL (1.0-4.8) Monocytes # (Auto) 0.9 K/uL (0.1-1.0) Eosinophils # (Auto) 0.30 K/uL (0.00-0.70) Basophils # (Auto) 0.07 K/uL (0.00-0.20) Absolute Immature Granulocyte (auto 0.04 K/uL (0-1) Nucleated Red Blood Cells 0.0 % (0.0-0.19) Sodium Level 133 mmol/L (136-145) L Potassium Level 4.0 mmol/L (3.5-5.1) Chloride Level 96 mmol/L (101-111) L Carbon Dioxide Level 28 mmol/L (21-32) Blood Urea Nitrogen 12 mg/dL (7-18) Creatinine 0.8 mg/dL (0.5-1.0) Glomerular Filtration Rate Calc 78 mL/min (>90) Random Glucose 120 mg/dL (70-105) H Total Calcium 8.7 mg/dL (8.5-10.1) Lipase 20 U/L (16-77) Labs Reviewed?: Yes EKG Comment: EKG done 06/08/2024 at 1749 NM 144 MS QRS 99 MS QT to 90 MS No STEMI. ED Course ED Course Orders Procedure Category Date Status Time Vital Signs Per CPOE 06/08/24 Transmitted Routine 17:47 Saline Lock Iv CPOE 06/08/24 Transmitted 17:47 Cbc With Differential LAB 06/08/24 Complete 17:47 Lipase LAB 06/08/24 Complete 17:47 Urinalysis Profile LAB 06/08/24 Complete 17:47 12 Lead Ekg Tracing- EKG 06/08/24 Complete Technical 17:47 Basic Metabolic Panel LAB 06/08/24 Complete 17:47 Ketorolac PHA 06/08/24 Complete Tromethamine 15mg/Ml 18:30 Dexamethasone 4mg/Ml PHA 06/08/24 Complete 1ml Vial (Dexametha 18:30 Lidocaine (Lidoderm PHA 06/08/24 Complete Patch 5%) 18:30 Ondansetron 4mg Inj PHA 06/08/24 Complete (Zofran 4mg Inj) 18:30 Current Medications Medications (Trade) Dose Ordered Sig/Suresh Route PRN Reason Start Time Stop Time Status Last Admin Dose Admin Dexamethasone Sodium Phosphate (dexaMETHasone 4MG/ML 1ML VIAL) 8 mg ONCE ONCE IV 06/08/24 18:30 06/08/24 18:31 DC 06/08/24 18:28 Ketorolac Tromethamine (toRADol) 15 mg ONCE ONCE IV 06/08/24 18:30 06/08/24 18:31 DC 06/08/24 18:27 Lidocaine (Lidoderm Patch 5%) 1 patch ONCE ONCE TP 06/08/24 18:30 06/08/24 18:31 DC 06/08/24 18:28 Ondansetron HCl (zoFRAN 4MG INJ) 4 mg ONCE ONCE IVP 06/08/24 18:30 06/08/24 18:31 DC 06/08/24 18:27 Vital Signs Date Time Temp Pulse Resp B/P (MAP) Pulse Ox O2 Delivery O2 Flow Rate FiO2 06/08/24 17:43 98.8 77 20 143/69 99 Room Air 0 Medical Decision Making MDM MDM: Differential diagnosis: Acute back pain, back sprain, lumbago. Rationale: Tests considered and ordered secondary to shared decision making include: Previous outside records reviewed: Old ER visits. Risk of complication and/or morbidity or mortality of patient management: None Medications-Per medication reconciliation Need for hospitalization: Patient does not meet criteria for hospitalization. Need for emergency major/minor surgery: No There are no social concerns with this patient. Prescription drug management Prescriptions will include symptomatic care Patient's prior external medical records from other ER visits were reviewed by me as indicated. Prior testing and results from previous visits were reviewed. Prior tests were taken into account with medical decision making and resource utilization, independent historian/historians were used to obtain complete medical history. I independently interpreted the test that were performed, results were reviewed by me and considered findings on radiology if ordered. Medical management and examination interpretation discussions were had by me with other qualified healthcare professionals as indicated for the patient's care. DX & DISP Disposition: Discharge Departure Impression: Primary Impression: Back sprain Condition: Stable Referrals: NEGRO DIEGO MD (PCP) Time of Disposition: 19:02 ALMA MYLES Jun 08, 2024 18:14
[2024-06-08 18:15] LABS: CREATININE 0.8 mg/dL (0.5-1.0)
[2024-06-08] MEDS: ondanSETRON 4MG INJ IVP ONE (18:27)
[2024-06-08] MEDS: ketOROlac 15MG/ML VIAL (15MG/ML) IV ONE (18:27)
[2024-06-08] MEDS: dexaMETHasone SOD PHOSPHATE 4 MG/ML 1ML VIAL IV ONE (18:28)
[2024-06-08] MEDS: LIDOCAINE 5% TOPICAL PATCH TP ONE (18:28)
[2024-06-08 19:39] VITALS: BP 146/74; PULSE 76; RESP 18; TEMP 98.4; O2SAT 98
== END 2024-06-08 19:32 | disposition home or self-care (01) ==
LOC: EDH 17:23
DX: S23.3XXA Sprain of ligaments of thoracic spine, initial encounter (principal); I10 Essential (primary) hypertension; M19.90 Unspecified osteoarthritis, unspecified site; Z79.899 Other long term (current) drug therapy; X58.XXXA Exposure to other specified factors, initial encounter; Y93.89 Activity, other specified; Y92.89 Other specified places as the place of occurrence of the external cause; Y99.8 Other external cause status
CPT/HCPCS: 99284; 96374; 96375; 80048; 83690; 85025; 81003; 36415; 93005; J1100; J2405; J1885

== ENCOUNTER 2024-07-23 08:42 | Emergency (ER) | payer MEDICARE ==
[~2024-07-23] VITALS: Ht 152.4 cm; Wt 66.7 kg
[~2024-07-23 08:42] MED LIST changes: +DIPH-1242 PO; +PRED5TAB PO
--- NOTE | 2024-07-23 09:07 | ERN ---
General Chief Complaint: Lower Extremity Pain/Injury Stated Complaint: CHRONIC RT LEG PAIN Time Seen by MD: 08:47 Source: patient History of Present Illness Initial Comments Patient is a 73-year-old female coming in to be evaluated for right hip pain. Patient states that the right hip pain has been ongoing for couple of weeks. Also states that she has been evaluated by her PCP imaging studies were taken but there was nothing found. Patient also states that has chronic arthritis and has been having on and off flare-up for some time. Allergies: Coded Allergies: No Known Allergies (Verified Allergy, Unknown, 06/08/18) Home Meds Active Scripts Prednisone (Prednisone) 5 Mg Tablet, 1 TAB PO BID for 5 Days, #10 TAB 0 Refills Prov:OSCAR EDWARDS 07/11/24 Diphenhydramine HCl (Benadryl) 25 Mg Cap, 25 MG PO BID for 5 Days, #10 CAP Prov:OSCAR EDWARDS 07/11/24 Reported Medications Diphenoxylate HCl/Atropine (Lomotil Tablet) 2.5 Mg-0.025 Mg Tablet, 1 EACH PO TIDMEALS, TAB 05/17/24 Multivit-Min/Iron/FA/Vit K/Lut (Centrum Silver Women Tablet) 8 Mg Iron-400 Mcg- 50 Mcg-300 Mcg Tablet, 1 EACH PO DAILY, TAB 05/17/24 Buspirone HCl (Buspirone HCl) 10 Mg Tablet, 10 MG PO BID, TAB 05/17/24 [calcium] No Conflict Check, 1 TAB PO DAILY 10/10/23 Celecoxib (Celebrex 200Mg Cap) 200 Mg Cap, 200 MG PO AM, CAP 10/10/23 Alendronate Sodium (Alendronate Sodium) 70 Mg Tablet, 70 MG PO QWEEK, TAB 06/27/23 Cholecalciferol (Vitamin D3) (Vitamin D3) 25 Mcg (1000 Unit) Capsule, 25 MCG PO DAILY, CAP 06/27/23 Losartan Potassium (Losartan Potassium) 25 Mg Tablet, 25 MG PO PCLUNCH, TAB 06/09/18 Metoprolol Succinate (Metoprolol Succinate) 100 Mg Tab.er.24h, 100 MG PO DAILY, TAB 06/09/18 Amlodipine Besylate (Amlodipine Besylate) 10 Mg Tablet, 10 MG PO HS, TAB 06/09/18 Levothyroxine Sodium (Levothroid/Synthroid) 50 Mcg Tab, 75 MCG PO ACBKFST, TAB 06/09/18 Past Medical History Past Medical History: Arthritis, High Cholesterol, Hypertension Past Surgical History: Other Surgical History Other: EYE SX, COLON RESECTION Social History Social History: Negative, Lives with family Female( History) History: Not Applicable ROS Dictation CONSTITUTIONAL: No chills, no fever, no weakness, no diaphoresis, no malaise. HEAD/FACE: No signs of trauma. EENT: No eye pain, no blurred vision, no tearing, no double vision, no ear pain, no ear discharge, no nose pain, no nasal congestion, no throat pain, no throat swelling, no mouth pain. RESPIRATORY: No cough, no orthopnea, no SOB, no stridor, no wheezing. CARDIOVASCULAR: No chest pain, no edema, no palpitations, no syncope. GASTROINTESTINAL/ABDOMINAL: No abdominal pain, no constipation, no diarrhea, no nausea, no vomiting. GENITOURINARY: No abnormal discharge, no dysuria, no frequent urination, no hematuria. No complaints of pain in the genitals. MUSCULOSKELETAL: No back pain, no gout, no joint pain, no joint swelling, no muscle pain, no muscle stiffness, no neck pain. INTEGUMENTARY: No change in color, no change in hair/nails, no dryness, no lesion, no lumps, no rash. NEUROLOGICAL/PSYCH: No anxiety, not depressed, no emotional problem, no headache, no numbness, no pre-existing deficit, no history of seizures, no tremors, no weakness. HEMATOLOGIC/LYMPHATIC: Not anemic, no history of blood clots, no apparent bleeding, no bruising, glands not swollen. All Systems Negative, Except as Noted. Physical Exam Physical Exam Dictation VITAL SIGNS: Reviewed. GENERAL APPEARANCE: Alert, oriented x3, no acute distress, obese. HEAD AND FACE: Non-traumatic. EYES: PERRL, pink conjunctivas, eyelid no trauma, anterior chamber clear. EARS: Pinnas intact and no signs of trauma or erythema. Ear canals clear and no discharge. TMs no erythema. NOSE: No discharge, no bleeding. OROPHARYNX: Mouth normal, teeth no caries, tongue pink. Pharynx clear, no erythema. Tonsils no exudates, no abscesses noted. Mucous membrane moist. NECK: Supple, non-tender, no thyromegaly, no masses, no JVD, no bruits. BREAST: Deferred. CHEST: No tenderness, no crepitus, no paradoxical movement, no retractions. LUNGS: Clear, well-ventilated, symmetric, no rales, no wheezing, no rhonchi, no stridor, good breath sounds bilaterally. HEART: Regular rate, regular rhythm, no murmur, no gallops. VASCULAR: No peripheral edema. ABDOMEN: Soft, positive bowel sounds, nondistended, no guarding, nontender, no rebound, no masses no hepatomegaly, no splenomegaly, no Wild's sign, no hernias. RECTAL: Deferred. GENITAL: Deferred. NEUROLOGICAL: Normal speech, gross motor function intact, gross sensory function intact. MUSCULOSKELETAL: Neck nontender, full range of motion, back nontender, full range of motion. EXTREMITIES: Right hip tender, full range of motion. SKIN: Color pink, dry, no turgor, no rash, no lacerations, no abrasions, no contusions. LYMPHATICS: Deferred. Results Laboratory and Microbiology Labs Reviewed?: Yes EKG/XRAY/US/CT/MRI X-RAY Comment [place] [address] [id number] IMAGING REPORT Signed PATIENT: ISAURO UP MR#: [id number] : 1950 SEX: F AGE: 73 LOCATION: ED ORDER 2 STATUS: [facility] REPORT#: [id number] SERVICE REASON: pain ORDERING PHYSICIAN: AG LEE MD PROCEDURE: KNEE 3V RT - KNEE 3VWS RT KNEE 3VWS RT REASON: pain TECHNIQUE: 3 views were obtained. FINDINGS: There is no evidence of fracture or dislocation. There is no joint effusion. The soft tissues appear unremarkable. There is no evidence of a radiopaque foreign body. IMPRESSION: No acute findings. DICTATED BY: CINDY ZEPEDA MD DATE: 07/23/24920 ELECTRONICALLY SIGNED BY: CINDY ZEPEDA MD DATE: 07/23/24922 [place] [id number] [place] [id number] IMAGING REPORT Signed PATIENT: ISAURO UP MR#: [id number] : 1950 SEX: F AGE: 73 LOCATION: EDH ORDER 2 STATUS: REG ER REPORT#: [id number] SERVICE 1 REASON: pain ORDERING PHYSICIAN: AG LEE MD PROCEDURE: HIP U 2V R - HIP UNILAT 2-3VW RIGHT HIP UNILAT 2-3VW RIGHT REASON: pain COMPARISON: None TECHNIQUE: 3 views were obtained of the pelvis and right hip. FINDINGS: Images show normal-appearing proximal femur. Hip joint spaces preserved. AP pelvis shows a normal-appearing pelvic bones. There is no evidence of fracture. IMPRESSION: 1. Normal views of the pelvis and right hip. DICTATED BY: CINDY ZEPEDA MD DATE: 07/23/24918 ELECTRONICALLY SIGNED BY: CINDY ZEPEDA MD DATE: 07/23/24922 [facility] MDM: Differential diagnosis: Osteoarthritis of the hip, fracture, strain, Patient is a 73-year-old female coming in to be evaluated for right hip pain. Per patient she does have a history of chronic arthritis and frequently presents with joint pain. On physical exam there is tenderness to the right hip region reproducible on palpation. X-ray did not disclose acute findings. A ntispasmodics and anti-inflammatories help with the discomfort. Patient will be discharged in stable condition. ED Course Orders Procedure Category Date Status Time Hip Unilat 2-3vw Right RAD 07/23/24 Resulted 08:52 Knee 3vws Rt RAD 07/23/24 Resulted 08:52 Orphenadrine Citrate PHA 07/23/24 Complete (Norflex) 09:00 Triamcinolone Acet PHA 07/23/24 Complete 40mg/Ml 1ml (Kenalog 09:00 Current Medications Medications (Trade) Dose Ordered Sig/Suresh Route PRN Reason Start Time Stop Time Status Last Admin Dose Admin Orphenadrine Citrate (Norflex) 60 mg ONCE ONCE IM 07/23/24 09:00 07/23/24 09:01 DC 07/23/24 09:15 Triamcinolone Acetonide (Kenalog 40) 40 mg ONCE ONCE IM 07/23/24 09:00 07/23/24 09:01 DC 07/23/24 09:15 Vital Signs Date Time Temp Pulse Resp B/P (MAP) Pulse Ox O2 Delivery O2 Flow Rate FiO2 07/23/24 08:43 98.2 84 16 142/65 99 Room Air 0 DX & DISP Disposition: Discharge Departure Impression: Primary Impression: Osteoarthritis of right hip Condition: Stable Scripts Naproxen (Naproxen) 250 Mg Tablet 1 TAB PO BID for pain for 7 Days, #14 TAB 0 Refills Prov: AG LEE MD 07/23/24 Methocarbamol (Robaxin) 750 Mg Tab 1 TAB PO BID for 5 Days, #10 TAB 0 Refills Prov: AG LEE MD 07/23/24 Additional Instructions: FOLLOW-UP WITH PRIMARY CARE PROVIDER IN 1 TO 2 DAYS. TAKE MEDICATIONS DIRECTED HERE IN THE EMERGENCY ROOM. OKAY TO CONTINUE HOME MEDICATIONS UNLESS OTHERWISE DISCUSSED DURING YOUR VISIT IN THE EMERGENCY ROOM TODAY. RETURN TO YOUR NEAREST EMERGENCY ROOM IF SYMPTOMS WORSEN OR IF THERE IS NO IMPROVEMENT. CALL 911 IF YOU NEED IMMEDIATE ASSISTANCE. TAKE TYLENOL CGOP-[id number] NEEDED AND IF NO CONTRAINDICATIONS ARE PRESENT. INCREASE ORAL HYDRATION. A WOUND CULTURE OR URINE CULTURE WAS ORDERED HERE IN THE EMERGENCY ROOM DEPARTMENT PLEASE FOLLOW-UP WITH PRIMARY CARE PROVIDER AND ADVISE THEM TO GET REPEAT PORTS FROM OUR FACILITY. IF YOU HAD ANY EMILIE WRAP/SPLINTS THAT WERE APPLIED HERE, PLEASE DO NOT REMOVE THEM UNTIL YOU SEE YOUR PRIMARY CARE OR SPECIALTY. Referrals: Referrals: NEGRO DIEGO MD (PCP) NEGRO SINGH MD Time of Disposition: 09:36 AG LEE MD Jul 23, 2024 09:07
[2024-07-23] MEDS: TRIAMCINOLONE ACETONIDE 40 MG/ML 1ML VIAL IM ONE (09:15)
[2024-07-23] MEDS: ORPHENADRINE 60MG/2ML IM ONE (09:15)
--- NOTE | 2024-07-23 09:23 | HMCIMG ---
KNEE 3VWS RT REASON: pain TECHNIQUE: 3 views were obtained. FINDINGS: There is no evidence of fracture or dislocation. There is no joint effusion. The soft tissues appear unremarkable. There is no evidence of a radiopaque foreign body. IMPRESSION: No acute findings.
--- NOTE | 2024-07-23 09:23 | HMCIMG ---
HIP UNILAT 2-3VW RIGHT REASON: pain COMPARISON: None TECHNIQUE: 3 views were obtained of the pelvis and right hip. FINDINGS: Images show normal-appearing proximal femur. Hip joint spaces preserved. AP pelvis shows a normal-appearing pelvic bones. There is no evidence of fracture. IMPRESSION: 1. Normal views of the pelvis and right hip.
[2024-07-23 09:35] VITALS: BP 134/66; PULSE 75; RESP 16; TEMP 98.8; O2SAT 95
[2024-07-23] MEDS ORDERED: METH-662 PO (09:37)
[2024-07-23] MEDS ORDERED: NAPR-1196 PO (09:37)
== END 2024-07-23 10:02 | disposition home or self-care (01) ==
LOC: EDH 08:42
DX: M16.11 Unilateral primary osteoarthritis, right hip (principal); E78.00 Pure hypercholesterolemia, unspecified; I10 Essential (primary) hypertension; Z79.52 Long term (current) use of systemic steroids; Z79.899 Other long term (current) drug therapy; Z98.890 Other specified postprocedural states
CPT/HCPCS: 99284; 73502; 73562; 96372 ×2; J3301; J2360